=== PATIENT | male | born 1955 | race Caucasian/White ===

== ENCOUNTER 2021-05-18 10:36 | Day surgery (SDC) | payer OTHER, SELFPAY ==
[2021-05-11 09:59] VITALS: BMI 48.1
[2021-05-11 10:11] VITALS: BMI 48.1
[2021-05-18 10:53] VITALS: BMI 48.4
[2021-05-18 11:01] VITALS: BP 156/95; PULSE 86; RESP 18; TEMP 36.1; O2SAT 98
--- NOTE | 2021-05-18 11:02 | P.CONAN_ITS ---
[facility] Active Problems Active Problems: All Active Problems (Updated 05/11/21 @ 10:13 by Stacy puga) Annual physical exam (Acute) Colon cancer screening (Acute) Impacted cerumen of both ears (Acute) Atrial fibrillation (Acute) Obstructive sleep apnea (Acute) BPH (benign prostatic hyperplasia) (Acute) Obesity (Acute) Osteoarthritis of hip (Acute) GERD (gastroesophageal reflux disease) (Acute) Hypercholesterolemia (Acute) Hypertension (Acute) Past Medical History Medical History Atrial fibrillation BPH (benign prostatic hyperplasia) COVID-19 vaccine series completed Generalized anxiety disorder GERD (gastroesophageal reflux disease) Hypercholesterolemia Hypertension Obesity Obstructive sleep apnea Osteoarthritis of hip SVT (supraventricular tachycardia) Functional capacity: independent ambulation Family History Family History Father Pneumonia Mother COPD (chronic obstructive pulmonary disease) Family history of problems with anesthesia: No Surgical History Surgical History H/O colonoscopy History of prior ablation treatment History of right hip replacement History of vasectomy Social History Social History Alcohol intake: current Alcohol intake frequency: a few times a month Patient Tobacco Use Status: Never used Tobacco Have you been hit, kicked, punched, or otherwise hurt by someone within the past year? If so, by whom?: No Are you DNR?: No Advance Directives: Yes Advance Directives Information Provided: Yes (form on chart from [facility]) Advance Directives on File: Yes Advance Directives Date on File: 03/06/20 Meds Allergies Allergy/AdvReac Type Severity Reaction Status Date / Time No Known Allergies Allergy Verified 11/07/20 09:02 [No Known Allergies*] Active Medications: Current Medications Generic Name Dose Route Start Last Admin Trade Name Freq PRN Reason Stop Dose Admin Sodium Biphosphate/Sodium Phosphate 133 ml 05/18/21 09:40 Sodium Phosphate,[place]-Dibasic 133 Ml Enema MS ONCE PRN Poor Colonoscopy Prep Results Home Medications Medication Instructions Recorded Confirmed Last Taken Type ibuprofen 200 mg tablet 800 mg PO Q6H tab 01/26/21 05/11/21 Unknown History tamsulosin 0.4 mg capsule 0.4 mg PO DAILY cap 01/26/21 05/11/21 Unknown History Exam Exam Date and Time: May 18, 2021 1102 Height,Weight and Vital Signs: Height 5 ft 9 in Weight 148.778 kg Last Vital Signs Temp 97.0 F 05/18/21 11:01 Pulse 86 05/18/21 11:01 Resp 18 05/18/21 11:01 BP 156/95 H 05/18/21 11:01 Pulse Ox 98 05/18/21 11:01 Airway Mallampati Class: IV TM Dist: >3cm Neck ROM: Full Heart: RRR Lungs: CTA Assessment and Plan Final Anesthetic Review Family History of Problems with Anesthesia: No
[2021-05-18] MEDS: Lactated Ringers 1,000 ML 50 ML IVCONT (11:14)
[2021-05-18 13:38] VITALS: BP 133/75; PULSE 81; RESP 16; TEMP 36.7; O2SAT 97
--- NOTE | 2021-05-18 13:38 | PM.OP ---
Brief Operative Note Date of Service: 05/18/21 Pre-op diagnosis: Screening Post-op diagnosis: other (Colon polyps) Procedure: Colonoscopy to the cecum and TI with bx/removal of polyps Surgeon: Ryan Crooks Anesthesia: MAC Was an Computer Technology Instructor used for this Procedure?: No Estimated blood loss (mL): 3.0 Pathology: other (A. Polyps at 20cm) Condition: stable Disposition: PACU
[2021-05-18 13:43] VITALS: BP 133/84; PULSE 78; RESP 16; O2SAT 98
[2021-05-18 13:48] VITALS: BP 135/77; PULSE 76; RESP 16; O2SAT 98
--- NOTE | 2021-05-18 13:52 | OP_ITS ---
SURGEON: Ryan Crooks MD INDICATIONS: The patient presents for evaluation of colorectal cancer screening. Full consent has been obtained from him for this, including risks of bleeding and perforation. PREOPERATIVE DIAGNOSIS: Colorectal cancer screening. POSTOPERATIVE DIAGNOSIS: PROCEDURE PERFORMED: Colonoscopy to cecum and terminal ileum with biopsy and removal of polyps. ESTIMATED BLOOD LOSS: COMPLICATIONS: ANESTHESIA: Monitored anesthesia care. ASSISTANTS: SPECIMENS: POSTOPERATIVE DIAGNOSES: Colorectal cancer screening, small colon polyps, sigmoid diverticulosis, and internal hemorrhoids. DESCRIPTION OF PROCEDURE: The patient was placed in the left lateral decubitus position. The digital rectal exam revealed no abnormalities. The Olympus video pediatric colonoscope was entered into the rectum and advanced easily to the cecum. Once in the cecum, I did identify normal-appearing cecal pouch with appendiceal orifice and a normal-appearing ileocecal valve. The terminal ileum was cannulated and appeared normal. The scope was withdrawn back in the colon. The entire cecum and ileocecal valve appeared normal. The scope was slowly withdrawn assessing all mucosal surfaces carefully. Preparation was excellent. At 20 cm, were 2 flat less than 5 mm polyps, which were each biopsied and completely removed with cold biopsy forceps. I did not visualize any other polyps, colitis, nor angiodysplasia. There was a mild amount of sigmoid diverticulosis. In the rectum, scope was retroflexed visualizing internal hemorrhoids, but no other pathology. The rectal mucosa appeared normal. The scope was straightened out and withdrawn from the patient. He tolerated the procedure well and was returned to the recovery area in stable condition. IMPRESSION: 1. Small colon polyps, status post biopsy and removal. 2. Diverticulosis. 3. Internal hemorrhoids. PLAN: The results of the biopsy will be checked. If the polyp is a tubular adenoma, I would recommend a followup colonoscopy in 5 years. If they are only hyperplastic, I would recommend a followup colonoscopy in 10 years. He was advised to continue his Benefiber and will see me on a p.r.n. basis. MD NOAH Tolbert/JENNL / [id number]
[2021-05-18 13:53] VITALS: BP 135/81; PULSE 73; RESP 16; TEMP 37.1; O2SAT 97
== END 2021-05-18 14:22 | disposition home or self-care (01) ==
PROVIDERS: PCP Internal Medicine; Visit Provider Internal Medicine
PROC: 0DJD8ZZ Inspection of Lower Intestinal Tract, Via Natural or Artificial Opening Endoscopic (ICD-10-PCS; CPT 45378; principal; 2021-05-18 11:50)
DX: Z12.11 Encounter for screening for malignant neoplasm of colon (principal); K63.5 Polyp of colon; K57.30 Diverticulosis of large intestine without perforation or abscess without bleeding; K64.8 Other hemorrhoids; R19.5 Other fecal abnormalities; R15.1 Fecal smearing; I48.91 Unspecified atrial fibrillation; G47.33 Obstructive sleep apnea (adult) (pediatric); N40.0 Benign prostatic hyperplasia without lower urinary tract symptoms; Z79.899 Other long term (current) drug therapy
CPT/HCPCS: 45380; 88305

== ENCOUNTER 2021-06-01 16:50 | Outpatient (REF) | payer OTHER, SELFPAY | END 2021-06-01 16:51 | disposition home or self-care (01) | LOC: HO.LNP 16:50 | PROVIDERS: Visit Provider Hospitalist | DX: Z20.822 Contact with and (suspected) exposure to COVID-19 (principal); B34.9 Viral infection, unspecified | CPT/HCPCS: U0003; U0005 ==

== ENCOUNTER 2021-07-23 | Outpatient (REF) | payer OTHER, SELFPAY ==
[2021-07-24 12:59] LABS: Influenza A PCR NEGATIVE (Negative); Influenza B PCR NEGATIVE (Negative); Resp Syncy Virus RNA Qual PCR NEGATIVE (Negative); SARS COV2 PCR INHOUSE NEGATIVE (Negative)
== END 2021-07-23 00:01 | disposition home or self-care (01) ==
LOC: HO.LNP
PROVIDERS: Visit Provider Physician Assistant Medical
DX: Z20.822 Contact with and (suspected) exposure to COVID-19 (principal); J06.9 Acute upper respiratory infection, unspecified
CPT/HCPCS: 0241U

== ENCOUNTER 2021-07-27 09:41 | Outpatient (REF) | payer OTHER, SELFPAY ==
[2021-07-27 10:12] LABS: MANUAL DIFF FLAG NO
[2021-07-27 10:32] LABS: Basophils Absolute Auto 0.1 X10*3/uL (0.0-0.2); Basophils Percent Auto 0.7 % (0-2); Eosinophils Absolute Auto 0.2 X10*3/uL (0.0-0.4); Eosinophils Percent Auto 2.4 % (0-4); Hematocrit 41.4 % (42-52); Hemoglobin 13.6 g/dl (14.0-18.0); Imm Gran Abs Auto 0.03 X10*3/uL (0.00-0.03); Imm Gran Pct Auto 0.3 % (0.0-0.4); Lymphocytes Percent Auto 22.6 % (20-40); Mean Corpuscular HGB Conc 32.9 g/dl (31.0-36.0); Mean Corpuscular Hemoglobin 29.1 pg (27.0-33.0); Mean Corpuscular Volume 88.5 fL (80-98); Mean Platelet Volume 10.5 fL (9.4-12.4); Monocytes Absolute Auto 0.7 X10*3/uL (0.1-1.2); Monocytes Percent Auto 7.6 % (2-11); Neutrophils Absolute Auto 5.7 X10*3/uL (2.0-8.3); Neutrophils Percent Auto 66.4 % (45-73); Platelet Count 233 X10*3/uL (160-400); Red Blood Count 4.68 X10*6/uL (4.60-5.80); Red Cell Distribution Width 13.2 % (11.0-16.0); White Blood Count 8.6 X10*3/uL (4.8-10.8)
[2021-07-27 10:51] LABS: Estimated Average Glucose 105 mg/dL; Hemoglobin A1c % 5.3 %
[2021-07-27 11:03] LABS: Alanine Aminotransferase 16 U/L (0-40); Albumin Level 4.1 g/dL (3.5-5.0); Alkaline Phosphatase 73 U/L (39-117); Anion Gap 14 (12-20); Aspartate Amino Transferase 12 U/L (5-37); Bilirubin Total 0.6 mg/dL (0.0-1.0); Blood Urea Nitrogen 15 mg/dL (9-16); Calcium 9.5 mg/dL (8.4-10.2); Carbon Dioxide 26 mmol/L (22-29); Chloride 107 mmol/L (96-108); Cholesterol 186 mg/dL; Estimated Glomerular Filt Rate > 60; Glucose Random 114 mg/dL (60-115); HDL Cholesterol 48 mg/dL; LDL Cholesterol Calculated 110 mg/dl; Potassium 4.5 mmol/L (3.3-5.1); Sodium 142 mmol/L (135-145); Total Protein 6.7 g/dL (6.5-8.0); Triglycerides 144 mg/dL
[2021-07-27 11:23] LABS: Free T4 (Free Thyroxine) 0.94 ng/dL (0.71-1.85); Prostate Specific Antigen Scr 2.98 ng/mL (<0.05-4.0); Thyroid Stimulating Hormone 1.49 uIU/mL (0.32-4.0)
[2021-07-27 11:38] LABS: Folate 7.3 ng/mL (> or = 4.0); Vitamin B12 233 pg/mL (200-900)
== END 2021-07-27 09:42 | disposition home or self-care (01) ==
LOC: HO.LAB 09:41
PROVIDERS: PCP Internal Medicine; Visit Provider Internal Medicine
DX: I10 Essential (primary) hypertension (principal); E78.00 Pure hypercholesterolemia, unspecified
CPT/HCPCS: 36415; 80053; 80061; 82607; 82746; 83036; 84153; 84439; 84443; 85025

== ENCOUNTER 2021-11-03 15:05 | Outpatient (REF) | payer OTHER, SELFPAY ==
[2021-11-03 15:41] LABS: MANUAL DIFF FLAG NO
[2021-11-03 16:01] LABS: Basophils Absolute Auto 0.1 X10*3/uL (0.0-0.2); Basophils Percent Auto 0.8 % (0-2); Eosinophils Absolute Auto 0.2 X10*3/uL (0.0-0.4); Eosinophils Percent Auto 1.9 % (0-4); Hematocrit 41.3 % (42.0-52.0); Hemoglobin 13.8 g/dl (14.0-18.0); Imm Gran Abs Auto 0.03 X10*3/uL (0.00-0.03); Imm Gran Pct Auto 0.3 % (0.0-0.4); Immature Retic Fraction 7.7 % (2.3-13.4); Lymphocytes Absolute Auto 2.1 X10*3/uL (1.2-4.9); Lymphocytes Percent Auto 24.2 % (20-40); Mean Corpuscular HGB Conc 33.4 g/dl (31.0-36.0); Mean Corpuscular Volume 86.8 fL (80.0-98.0); Mean Platelet Volume 10.6 fL (9.4-12.4); Monocytes Absolute Auto 0.6 X10*3/uL (0.1-1.2); Monocytes Percent Auto 7.3 % (2-11); Neutrophils Absolute Auto 5.8 x10*3/uL (2.0-8.3); Neutrophils Percent Auto 65.5 % (45-73); Platelet Count 215 X10*3/uL (160-400); Red Blood Count 4.76 X10*6/uL (4.60-5.80); Red Cell Distribution Width 12.8 % (11.0-16.0); Retic HGB Equivalent 32.2 pg (30.0-35.0); Reticulocyte Percent 1.1 % (0.5-1.8); White Blood Count 8.8 X10*3/uL (4.8-10.8)
[2021-11-03 16:07] LABS: Estimated Average Glucose 105 mg/dL; Hemoglobin A1c % 5.3 %
[2021-11-03 16:27] LABS: Alanine Aminotransferase 14 U/L (0-40); Albumin Level 4.1 g/dL (3.5-5.0); Alkaline Phosphatase 76 U/L (39-117); Anion Gap 11 (12-20); Aspartate Amino Transferase 11 U/L (5-37); Bilirubin Total 0.8 mg/dL (0.0-1.0); Blood Urea Nitrogen 17 mg/dL (9-16); Calcium 9.3 mg/dL (8.4-10.2); Carbon Dioxide 25 mmol/L (22-29); Chloride 107 mmol/L (96-108); Estimated Glomerular Filt Rate > 60; Glucose Random 116 mg/dL (60-115); Iron 74 mcg/dL (45-160); Percent Iron Saturation 22 % (15-50); Sodium 139 mmol/L (135-145); Total Iron Binding Capacity 341 mcg/dL (228-428); Total Protein 6.9 g/dL (6.5-8.0); Unsaturated Iron Binding 267 ug/dL
[2021-11-03 16:48] LABS: Ferritin 65 ng/mL (20-250)
== END 2021-11-03 15:06 | disposition home or self-care (01) ==
LOC: HO.LAB 15:05
PROVIDERS: PCP Internal Medicine; Visit Provider Internal Medicine
DX: D64.9 Anemia, unspecified (principal)
CPT/HCPCS: 36415; 80053; 82728; 83036; 83540; 85025; 85045

== ENCOUNTER 2024-08-16 13:12 | Outpatient (AMB) | payer OTHER, SELFPAY ==
--- NOTE | 2024-08-16 13:16 | AM.OFFWIN_ITS ---
Intake Vital Signs 08/16/24 13:17 Height 5 ft 9 in BP 132/80 Blood Pressure Location Rt brachial Position Sitting Pulse 87 Pulse Source Pulse Oximeter Pulse Oximetry (%) 97 Intake Visit Reasons: EP RT shoulder injury Intake Note: pt is here for right shoulder pain, fell on concrete in [facility] yesterday Patient Tobacco Use Status: Never used Tobacco Allergies No Known Allergies [No Known Allergies*] Allergy (Verified 08/16/24 13:17) Do you need a note to return to daycare/school/sports/work: No HPI HPI Comments History of Present Illness Details Patient is a 68-year-old male complaining of right shoulder pain [place] on his left hand and right elbow on the concrete. He tells me his left hand is a little bit sore but it is fine and he is mostly concerned about his right shoulder. He tells me the pain radiates from his elbow up to his shoulder and he is unable to lift his arm more than a few inches away from his body. He use some ice for the pain and that seemed to help. He also took some Tylenol. [facility] Medical History (Updated 08/16/24 @ 15:16 by Jina Pemberton PA-C) COVID-19 vaccine series completed Atrial fibrillation SVT (supraventricular tachycardia) Obstructive sleep apnea BPH (benign prostatic hyperplasia) Obesity Osteoarthritis of hip Generalized anxiety disorder GERD (gastroesophageal reflux disease) Hypercholesterolemia Hypertension Surgical History H/O colonoscopy History of prior ablation treatment History of right hip replacement History of vasectomy Family History Father Pneumonia Mother COPD (chronic obstructive pulmonary disease) Social History Housing: Apartment Alcohol intake: current Alcohol intake frequency: a few times a month Patient Tobacco Use Status: Never used Tobacco e-Cigarette/Vaping Use: Never Used Second Hand Smoke Exposure: No Advance Directives Date on File: 03/06/20 Current occupational status: unemployed Review of Systems Const All systems reviewed & are unremarkable except as noted in HPI and below Physical Exam Vital Signs: Last Vital Signs Pulse 87 08/16/24 13:17 BP 132/80 08/16/24 13:17 Pulse Ox 97 08/16/24 13:17 Const General: cooperative, healthy appearing, comfortable, no acute distress and well developed Orientation/consciousness: patient oriented x3 Limitations: no limitations HEENT Head: Yes normal to inspection Ears: hearing grossly normal bilaterally General nose exam: Normal external nose present Face and sinus: Yes normal facial exam Eyes General: appearance normal, both eyes and all related structures Neck Neck: Yes normal visual inspection and Yes full ROM Resp Effort & Inspection: normal respiratory effort and able to speak in complete sentences Skin General skin exam: no rashes or lesions noted Neuro General: patient oriented x3 Extrem General: Yes normal to inspection Right upper extremity: normal to inspection, shoulder/upper arm Details: normal to inspection, tenderness Location: over the coracoid process, axillary nerve sensory function normal and abnormal ROM Details: held in an abnormal fashion Details: in ADduction; no swelling, no abrasions, no lacerations, no ecchymosis, no foreign bodies, no deformity and no unusual warmth and elbow/forearm Details: normal to inspection and normal ROM; no tenderness and no swelling Assessment & Plan Assessment & Plan (1) Shoulder pain, acute: Code(s): M25.519 - Pain in unspecified shoulder Qualifiers: Laterality: right Qualified Code(s): M25.511 - Pain in right shoulder Plan: My read of the x-ray shows no fracture or dislocation, likely rotator cuff tendinitis. Placed patient in a arm sling and recommended he follow up with his doctor in [place] when he returns if his pain does not improve over the next couple of days. Recommending using an NSAID and ice as well (2) Sprain of shoulder, right: Code(s): S43.401A - Unspecified sprain of right shoulder joint, initial encounter Qualifiers: Encounter type: initial encounter Shoulder sprain type: unspecified sprain Qualified Code(s): S43.401A - Unspecified sprain of right shoulder joint, initial encounter Plan: See above Plan See above Orders: Orders XR shoulder RT min 2V Today M25.519 - Pain in unspecified shoulder Coding Level of Care Code Est Pt Level 3 (97153) Diagnoses Acute pain of right shoulder M25.511 Laterality: right Sprain of right shoulder, unspecified shoulder sprain type, initial encounter S43.401A Encounter type: initial encounter Shoulder sprain type: unspecified sprain
[2024-08-16 13:17] VITALS: BP 132/80; PULSE 87; O2SAT 97
== END 2024-08-16 14:09 | disposition home or self-care (01) ==
PROVIDERS: PCP Internal Medicine; Visit Provider Physician Assistant
DX: M25.511 Pain in right shoulder (principal); S43.401A Unspecified sprain of right shoulder joint, initial encounter

== ENCOUNTER 2024-08-16 13:12 | Outpatient (REF) | payer OTHER, SELFPAY ==
--- NOTE | ~2024-08-16 | XR_ITS ---
EXAMINATION: XR SHOULDER, RIGHT CLINICAL INFORMATION: Pain. COMPARISON: None available. TECHNIQUE: AP external rotation, Grashey, scapular Y, and axillary views of the right shoulder. FINDINGS: No acute cortical disruption or malalignment. No lytic or blastic lesions. Degenerative changes in the acromioclavicular joint. XR/XR shoulder RT min 2V IMPRESSION: Osteoarthrosis without acute fracture or dislocation. Electronically signed by: Joo Leon MD 08/17/2024 07:14 AM YADIEL MUNOZ
== END 2024-08-16 13:13 | disposition home or self-care (01) ==
LOC: HO.HMGCX 13:12
PROVIDERS: Visit Provider Physician Assistant
DX: M25.512 Pain in left shoulder (principal)
CPT/HCPCS: 73030

== ENCOUNTER → 2024-08-16 13:31 | Outpatient (BNV) | payer OTHER, SELFPAY | PROVIDERS: Visit Provider Radiology Diagnostic Radiology | DX: M25.511 Pain in right shoulder (principal) | CPT/HCPCS: 73030 ==